=== PATIENT | female | born 1990 | race Caucasian/White ===

== ENCOUNTER 2020-10-16 11:57 | Inpatient (IN) ==
[2020-10-16] MEDS ORDERED: Metoclopramide 10 MG/2 ML VIAL IVP ONE (13:03)
[2020-10-16] MEDS ORDERED: Oxytocin 20 units/ LR 1000 mL 20 UNIT/1,000 ML BAG IVC ONE (13:03)
[2020-10-16] MEDS ORDERED: Ringers Solution, Lactated 1,000 ML IVC ONE (13:03)
[2020-10-16] MEDS ORDERED: Famotidine 20 MG/2 ML VIAL IVP ONE (13:03)
[2020-10-16] MEDS ORDERED: CeFAZolin 2,000 MG/50 ML BAG IVPB ONE (13:03)
[2020-10-16] MEDS ORDERED: Ringers Solution, Lactated 1,000 ML ONE (13:15)
[2020-10-16] MEDS ORDERED: Ringers Solution, Lactated 1,000 ML IVC SCH (13:15)
[2020-10-16] MEDS ORDERED: Oxytocin 20 units/ LR 1000 mL 20 UNIT/1,000 ML BAG IVC SCH ×2 (13:15→17:01)
[2020-10-16 13:37] LABS: Basophils % 0.2 %; Eosinophils # 0.1 K/mcL (0.0-0.6); Eosinophils % 0.5 %; Hematocrit 39.9 % (35.3-44.9); Hemoglobin 13.3 g/dL (11.5-15.4); Immature Granulocytes % 0.4 % (0-4); Lymphocytes % 28.7 %; Mean Corpuscular HGB Conc 33.3 g/dL (31.6-35.5); Mean Corpuscular Hemoglobin 29.4 pg (28.0-33.3); Mean Corpuscular Volume 88.3 fL (83.0-100.0); Mean Platelet Volume 11.2 fL (9.4-12.4); Monocytes # 0.6 K/mcL (0.0-1.3); Monocytes % 6.2 %; Neutrophils # 6.6 K/mcL (1.6-8.9); Platelet Count 180 K/mcL (140-400); Red Blood Count 4.52 M/mcL (3.82-4.97); Red Cell Distribution Width 14.2 % (11.5-14.5); White Blood Count 10.3 K/mcL (4.3-11.1)
[2020-10-16 13:56] LABS: Amphetamine Screen,Urine Negative ng/mL (Cutoff=1000); Barbiturate Screen,Urine Negative ng/mL (Cutoff=200); Benzodiazepines Screen,Urine Negative ng/mL (Cutoff=200); Cannabinoid Screen,Urine Negative ng/mL (Cutoff = 50); Cocaine Screen,Urine Negative ng/mL (Cutoff= 300); Opiate Screen,Urine Negative ng/mL (Cutoff=300); Phencyclidine Screen,Urine Negative ng/mL (Cutoff=25)
[2020-10-16] MEDS ORDERED: *HR* Morphine Sulfate/PF 10 MG/10 ML AMPUL ONE (13:58)
[2020-10-16] MEDS ORDERED: Dexamethasone 4 MG/ML VIAL ONE (13:58)
[2020-10-16] MEDS ORDERED: *HR* FentaNYL (PF) 100 MCG/2 ML VIAL ONE (13:58)
[2020-10-16] MEDS ORDERED: Ketorolac 30 MG/ML VIAL ONE (13:58)
[2020-10-16] MEDS ORDERED: EPHEDrine 50 MG/ML VIAL ONE (13:58)
[2020-10-16] MEDS ORDERED: Acetaminophen IV 1,000 MG/100 ML BAG IVPB ONE (13:58)
[2020-10-16] MEDS ORDERED: Ondansetron 4 MG/2 ML VIAL ONE (13:58)
[2020-10-16] MEDS ORDERED: *HR* OxyCODONE Immed Rel 5 MG TABLET PO PRN (14:32)
[2020-10-16] MEDS ORDERED: Ondansetron 4 MG/2 ML VIAL IVP PRN ×2 (14:32→17:01)
[2020-10-16] MEDS ORDERED: *HR* HYDROmorphone (PF) 1 MG/ML SYRINGE IVP PRN (14:32)
[2020-10-16] MEDS ORDERED: Sennosides 8.6 MG TABLET PO PRN (17:01)
[2020-10-16] MEDS ORDERED: Metoclopramide 10 MG/2 ML VIAL IVP PRN (17:01)
[2020-10-16] MEDS: metroNIDAZOLE 500 MG TABLET PO SCH (21:43)
[2020-10-16] MEDS: CeFAZolin 2 GM/120 ML BAG IVPB SCH (21:43)
[2020-10-17] MEDS: Ibuprofen 600 MG TABLET PO PRN ×4 (00:19→18:23)
[2020-10-17] MEDS: *HR* OxyCODONE/APAP 5/325 TABLET PO PRN ×5 (01:29→19:53)
[2020-10-17] MEDS: CeFAZolin 2 GM/120 ML BAG IVPB SCH ×2 (05:43→14:25)
[2020-10-17 06:02] LABS: Basophils % 0.3 %; Eosinophils # 0.1 K/mcL (0.0-0.6); Eosinophils % 0.5 %; Hematocrit 36.3 % (35.3-44.9); Immature Granulocytes % 0.3 % (0-4); Lymphocytes # 3.1 K/mcL (0.6-4.6); Lymphocytes % 26.2 %; Mean Corpuscular HGB Conc 33.1 g/dL (31.6-35.5); Mean Corpuscular Hemoglobin 29.1 pg (28.0-33.3); Mean Corpuscular Volume 87.9 fL (83.0-100.0); Monocytes # 0.7 K/mcL (0.0-1.3); Monocytes % 6.2 %; Neutrophils # 7.8 K/mcL (1.6-8.9); Platelet Count 155 K/mcL (140-400); Red Blood Count 4.13 M/mcL (3.82-4.97); Red Cell Distribution Width 14.1 % (11.5-14.5); Segmented Neutrophils % 66.5 %; White Blood Count 11.8 K/mcL (4.3-11.1)
[2020-10-17] MEDS: Prenatal Vit/FA 1 EACH TABLET PO SCH (09:06)
[2020-10-17] MEDS: metroNIDAZOLE 500 MG TABLET PO SCH ×3 (09:06→19:58)
[2020-10-17] MEDS: Simethicone 80 MG TAB.CHEW PO PRN (19:59)
[2020-10-18] MEDS: *HR* OxyCODONE/APAP 5/325 TABLET PO PRN ×3 (00:06→10:06)
[2020-10-18] MEDS: Ibuprofen 600 MG TABLET PO PRN ×2 (01:25→10:06)
[2020-10-18] MEDS: Simethicone 80 MG TAB.CHEW PO PRN ×2 (04:30→10:12)
[2020-10-18 09:07] VITALS: BP 101/63
[2020-10-18] MEDS: metroNIDAZOLE 500 MG TABLET PO SCH (10:06)
[2020-10-18] MEDS: Prenatal Vit/FA 1 EACH TABLET PO SCH (10:06)
== END 2020-10-18 14:20 | disposition home or self-care (01) | DRG 788 ==
LOC: 1NENULAB 11:57 → 1NENUOBS 17:51
PROVIDERS: ADMIT Obstetrics & Gynecology; ATTEND Obstetrics & Gynecology